=== PATIENT | male | born 2005 | race Caucasian/White ===

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

== ENCOUNTER 2024-06-18 00:12 | Emergency (ER) | payer OTHER, SELFPAY ==
[2024-06-18] VITALS (19 sets, daily range): BP systolic 123–147; BP diastolic 64–110; PULSE 50–82; RESP 12–22; TEMP 36.6; O2SAT 96–100
[2024-06-18 00:57] LABS: Basophils Absolute Auto 0.1 K/mm3 (0.0-0.1); Basophils Percent Auto 0.4 % (0.2-1.2); Eosinophils Absolute Auto 0.1 K/mm3 (0-0.3); Eosinophils Percent Auto 0.8 % (0-4.4); Hematocrit 49.7 % (42.0-52.0); Hemoglobin 18.4 g/dL (14.0-18.0); Immature Granulocyte Absolute 0.09 K/mm3 (0.00-0.031); Immature Granulocyte Percent A 0.6 % (0-0.5); Lymphocytes Absolute Auto 1.49 K/mm3 (0.9-3.2); Lymphocytes Percent Auto 9.7 % (18.3-44.2); Mean Corpuscular Hemoglobin 32.2 pg (26-34); Mean Platelet Volume 10.1 fl (7.4-10.4); Monocytes Absolute Auto 0.8 K/mm3 (0.1-0.6); Monocytes Percent Auto 4.9 % (2.6-8.5); Neutrophils Absolute Auto 12.8 K/mm3 (1.3-6.7); Neutrophils Percent Auto 83.6 % (45.5-73.1); Platelet Count Result 339 k/mm3 (150-375); Red Blood Count 5.71 M/mm3 (4.6-6.20); Red Cell Distribution Width 12.5 % (11.5-14.5); White Blood Count 15.3 K/mm3 (4.5-10.0)
[2024-06-18] MEDS: SODIUM CHLORIDE 0.9% IV 1,000 ML 999 ML IV CONT (01:11)
[2024-06-18 01:19] LABS: Alanine Aminotransferase 28 U/L (6-50); Albumin Level 5.6 g/dL (3.5-5.1); Alkaline Phosphatase 93 U/L (38-126); Anion Gap 20 mmol/L (4-12); Aspartate Amino Transferase 35 U/L (17-59); Bilirubin,Total 1.2 mg/dL (0.2-1.3); Blood Urea Nitrogen 13 mg/dL (9-20); Calcium 10.5 mg/dL (8.4-10.2); Carbon Dioxide 18 mmol/L (22-30); Chloride 102 mmol/L (98-107); Estimated CRCL calculation 131 ml/min; Estimated Glomerular Filt Rate > 60; Glucose 122 mg/dL (65-110); Potassium 3.8 mmol/L (3.4-5.0); Sodium 140 mmol/L (137-145)
--- NOTE | 2024-06-18 01:26 | ED.NAVMDI ---
HPI - Nausea/Vomiting/Diarrhea General Chief complaint: Nausea/Vomiting/Diarrhea <Mel Delvalle PA-C - Last Filed: 06/18/24 02:06> Stated complaint: syncopal, vomiting <Mel Delvalle PA-C - Last Filed: 06/18/24 02:06> Time Seen by Provider: 06/18/24 00:46 <Mel Delvalle PA-C - Last Filed: 06/18/24 02:06> History of Present Illness HPI Narrative: 19-year-old male presents to the emergency department for nausea, vomiting, lightheadedness. Patient's mother provides history. States patient has a history of POTS and MCAS and follows with Neurology in [facility]. States he is having a flare up of my Mann . He is reporting nausea vomiting, lightheadedness, diffuse abdominal cramping. Denies fever, cough or congestion, chest pain or shortness of breath, dysuria or hematuria. <Mel Delvalle PA-C - Last Filed: 06/18/24 02:06> Related Data Home medications: Home Medications Medication Instructions Recorded Confirmed famotidine 40 mg tablet (Pepcid) 40 mg PO DAILY 03/03/24 03/03/24 propranolol 20 mg tablet 20 mg PO BID 03/03/24 03/03/24 <Mel Delvalle PA-C - Last Filed: 06/18/24 02:06> Allergies/Adverse reactions: Allergies Allergy/AdvReac Type Severity Reaction Status Date / Time doxycycline Allergy Nausea and Verified 06/18/24 01:14 Vomiting <Mel Delvalle PA-C - Last Filed: 06/18/24 02:06> Review of Systems Review of Systems: All systems reviewed & are unremarkable except as noted in HPI and below <Mel Delvalle PA-C - Last Filed: 06/18/24 02:06> [facility] Past Medical History Medical History: Medical History Blackout spell Dizziness Fainting Fatigue Seizures Stomach pain <Mel Delvalle PA-C - Last Filed: 06/18/24 02:06> Family History Family History: Family History Father , 34 Accidental overdose Mother Hypertension Depression Anxiety Sibling Depression Anxiety <Mel Delvalle PA-C - Last Filed: 06/18/24 02:06> Social History Social History: Social History Smoking status: Never smoker Second hand tobacco smoke exposure: No Alcohol intake: never Substance use: never Substance use type: does not use Do You Feel Safe in your Home?: Yes Lack of Transportation: No Lack of Food: Never True Current Housing: I Have Housing Concerned About Future Housing: No Difficulty Paying Gas/Electric Bills: No Difficulty Paying for Meds: No Currently Unemployed: No Education: High School Diploma/GED Difficulty w/ Childcare or Family Care: No Living arrangements: with family Occupation/Education: unemployed Gender identity (if verbalized by the patient): Male <Mel Delvalle PA-C - Last Filed: 06/18/24 02:06> Exam Narrative: GENERAL: well-nourished, and in no acute distress. Diaphoretic HEAD: Normocephalic, atraumatic. EYES: PERRLA and EOMI. ENT: Nares clear, no rhinorrhea or epistaxis. Mucous membranes moist. NECK: Supple. CHEST: Clear to auscultation. No respiratory distress. HEART: Regular rate and rhythm. No murmur heard. Normal peripheral pulses. ABDOMEN: Soft, nontender, nondistended, normal active bowel sounds. EXTREMITIES: Normal range of motion. No edema. SKIN: Warm, dry, no rash. NEURO: No focal deficits. Alert and oriented x3 <Mel Delvalle PA-C - Last Filed: 06/18/24 02:06> Course [employer]/PA Physician Supervision I agree with midlevel documentation; I performed the medical decision making component of this evaluation. <Nikki Vaughn MD - Last Filed: 06/18/24 05:02> Reevaluation(s) Reevaluation #1: Patient feeling better, no further episodes of emesis here. He is still very slightly nauseous so I did give additional medications and fluids. He is now r
--- NOTE | 2024-06-18 01:26 | ECG_ITS ---
Test Date: 2024-06-18 01:53:00 Measurements Intervals [place] Rate: 54 P: 0 DC: 0 QRS: 75 QRSD: 106 T: 32 QT: 415 QTc: 395 Interpretive Statements ATRIAL FIBRILLATION WITH SLOW VENTRICULAR RESPONSE ABNORMAL RHYTHM ECG No previous ECG available for comparison Electronically Signed On 06-18-2024 13:45:18 CDT by Sunil Tee M.D.
[2024-06-18 01:50] LABS: Lipase 80 U/L (23-300)
[2024-06-18 02:15] LABS: Influenza A QL RT-PCR Negative (Negative); Influenza B QL RT-PCR Negative (Negative); RSV RNA, RT-PCR Negative (Negative); SARS-CoV-2 RNA PCR Negative (Negative)
[2024-06-18] MEDS: ONDANSETRON INJ 4 MG/2 ML VIAL IV PUSH (02:27)
[2024-06-18] MEDS: LACTATED RINGERS 1,000 ML 999 ML IV CONT (04:20)
[2024-06-18] MEDS: diphenhydrAMINE HCl INJ 50 MG/ML VIAL 25 MG IV PUSH (04:20)
[2024-06-18] MEDS: METOCLOPRAMIDE HCL INJ 10 MG/2 ML VIAL IV PUSH (04:21)
--- NOTE | 2024-06-18 04:25 | PC.NURSE ---
Patient given water for PO challenge.
== END 2024-06-18 05:47 | disposition home or self-care (01) ==
PROVIDERS: Physician Assistant; Emergency Provider Emergency Medicine; PCP Emergency Medicine
DX: G90.A Postural orthostatic tachycardia syndrome [POTS] (principal); R11.2 Nausea with vomiting, unspecified; Z20.822 Contact with and (suspected) exposure to COVID-19; D89.40 Mast cell activation, unspecified
CPT/HCPCS: 36415; 80053; 83690; 85025; 87637; 93005; 96361; 96374; 96375; 99284; J1200; J2405; J2765; J7030; J7120

== ENCOUNTER 2024-06-27 13:46 | Emergency (ER) | payer OTHER, SELFPAY ==
--- NOTE | ~2024-06-27 | XR_ITS ---
XR hand LT min 3V 06/27/2024 14:05 INDICATION: Left hand pain PROCEDURE: 3 views left hand COMPARISON: No prior studies for comparison. FINDINGS: Fracture, dislocation or subluxation is not identified. The soft tissues appear within norm al limits. No foreign bodies are identified. IMPRESSION: 1: NO ACUTE BONE OR JOINT ABNORMALITY IDENTIFIED. Reviewed, dictated and finalized at location B.
[2024-06-27 13:50] VITALS: BP 116/67; PULSE 85; RESP 20; TEMP 36.6; O2SAT 100
--- NOTE | 2024-06-27 13:58 | ED.UPPEXIN ---
HPI - Extremity Injury (Upper) General Chief Complaint: Extremity Injury, Upper Stated Complaint: left hand injury History of Present Illness HPI narrative: Patient presents with a hand injury that occurred last night when he was carrying a laundry basket up stairs he states he got the hand caught between a laundry basket and the door and now has bruising swelling and tenderness to his left hand. No deformity noted. Related Data Home Medications Medication Instructions Recorded Confirmed clindamycin phosphate 1 % topical 1 applic topical BID 06/27/24 06/27/24 gel duloxetine 60 mg capsule,delayed 60 mg PO QAM 06/27/24 06/27/24 release famotidine 20 mg tablet 20 mg PO DAILY 06/27/24 06/27/24 fexofenadine 180 mg tablet 180 mg PO BID 06/27/24 06/27/24 (Allergy Relief (fexofenadine)) propranolol 10 mg tablet 10 mg PO DAILY 06/27/24 06/27/24 triamcinolone acetonide 0.1 % 1 applic topical DAILY 06/27/24 06/27/24 topical ointment Allergies Allergy/AdvReac Type Severity Reaction Status Date / Time doxycycline AdvReac Intermediate Nausea and Verified 06/27/24 14:04 Vomiting Review of Systems Review of Systems: CONSTITUTIONAL: Denies fever, chills, or sweats. EYES: Denies visual changes, redness, or discharge. ENT: Denies rhinorrhea, congestion, sore throat, or otalgia. CARDIOVASCULAR: Denies chest pain, palpitations, or edema. RESPIRATORY: Denies cough or dyspnea. GASTROINTESTINAL: Denies abdominal pain, nausea, vomiting, or diarrhea. GENITOURINARY: Denies dysuria or hematuria. SKIN: Denies rash or itching. MUSCULOSKELETAL: Denies back pain, joint pain, or myalgia. NEUROLOGIC: Denies headache, numbness, or weakness. PSYCHIATRIC: Denies anxiety or depression. [facility] Past Medical History Medical History Blackout spell Dizziness Fainting Fatigue Seizures Stomach pain Family History Family History Father , 34 Accidental overdose Mother Hypertension Depression Anxiety Sibling Depression Anxiety Social History Social History (Reviewed 08/11/24 @ 01:27 by ETHEL Cornejo Smoking status: Never smoker Second hand tobacco smoke exposure: No Alcohol intake: never Substance use: never Substance use type: does not use Do You Feel Safe in your Home?: Yes Lack of Transportation: No Lack of Food: Never True Current Housing: I Have Housing Concerned About Future Housing: No Difficulty Paying Gas/Electric Bills: No Difficulty Paying for Meds: No Currently Unemployed: No Education: High School Diploma/GED Difficulty w/ Childcare or Family Care: No Living arrangements: with family Occupation/Education: unemployed Gender identity (if verbalized by the patient): Male Comments At time of signature, agree with nursing past medical, surgical, social and family history. There is no relevant family history pertinent to the presenting complaint Exam Narrative: GENERAL: Well-appearing, well-nourished, and in no acute distress. HEAD: Normocephalic, atraumatic. EYES: PERRLA and EOMI. ENT: Nares clear, no rhinorrhea or epistaxis. Mucous membranes moist. NECK: Supple. CHEST: Clear to auscultation. No respiratory distress. HEART: Regular rate and rhythm. No murmur heard. Normal peripheral pulses. ABDOMEN: Soft, nontender, nondistended, normal active bowel sounds. EXTREMITIES: Normal range of motion. No edema. HAND EXAM - Skin intact, no laceration, no swelling, no erythema, normal digit cascade with flexion of fingers, median nerve, ulnar nerve, radial nerve is intact. Normal sensation of each side of each finger, can perform `ok? sign, `cross over finger test of index and middle fingers? and `thumbs up? sign, normal thumb opposition, no scissoring. good capillary refill and radial pulse. normal flexion and extension of fingers and wrist. no
== END 2024-06-27 14:35 | disposition home or self-care (01) ==
PROVIDERS: Emergency Provider Nurse Practitioner Family; PCP Emergency Medicine
DX: S60.222A Contusion of left hand, initial encounter (principal); S60.512A Abrasion of left hand, initial encounter; X58.XXXA Exposure to other specified factors, initial encounter
CPT/HCPCS: 73130; 99213; G0463

== ENCOUNTER 2024-09-27 16:26 | Emergency (ER) | payer SELFPAY ==
--- NOTE | ~2024-09-27 | XR_ITS ---
EXAMINATION: XR hand LT min 3V DATE: 09/27/2024 20:18 INDICATION: Dog bite. TECHNIQUE: 3 views of left hand were obtained. COMPARISON: Left hand radiographs 06/27/2024 FINDINGS: Alignment is normal. No fracture. Joint spaces are normal. No radiopaque foreign body. IMPRESSION: 1. No fracture or radiopaque foreign body. Reviewed, dictated and finalized at location A. ND BLANCHER
[2024-09-27 16:31] VITALS: BP 138/78; PULSE 88; RESP 16; O2SAT 100
[2024-09-27 19:47] VITALS: BP 141/89; PULSE 92; RESP 20; TEMP 37.1; O2SAT 98
--- NOTE | 2024-09-27 19:51 | ED_ITS ---
HPI - Animal Bite General Chief Complaint: Animal Bite Stated Complaint: dog bite Time Seen by Provider: 09/27/24 19:50 Source: patient Mode of arrival: ambulatory Limitations: no limitations History of Present Illness HPI narrative: This is a 19-year-old male who presents to the ED for chief complaint of dog bite injury that occurred just prior to arrival. Patient reports that he has new puppy who was fighting with their older dog. Reports that he tried the break up the fight and suffered a laceration/puncture injury to the left hand. Tdap not UTD. Denies any further sites of pain or injury. Related Data Home Medications Medication Instructions Recorded Confirmed clindamycin phosphate 1 % topical 1 applic topical BID 06/27/24 06/27/24 gel duloxetine 60 mg capsule,delayed 60 mg PO QAM 06/27/24 06/27/24 release famotidine 20 mg tablet 20 mg PO DAILY 06/27/24 06/27/24 fexofenadine 180 mg tablet 180 mg PO BID 06/27/24 06/27/24 (Allergy Relief (fexofenadine)) propranolol 10 mg tablet 10 mg PO DAILY 06/27/24 06/27/24 triamcinolone acetonide 0.1 % 1 applic topical DAILY 06/27/24 06/27/24 topical ointment Allergies Allergy/AdvReac Type Severity Reaction Status Date / Time doxycycline AdvReac Intermediate Nausea and Verified 06/27/24 14:04 Vomiting Review of Systems Review of Systems: All systems as dictated in HPI PMFSH Past Medical History Medical History Blackout spell Dizziness Fainting Fatigue Seizures Stomach pain Family History Family History Father , 34 Accidental overdose Mother Hypertension Depression Anxiety Sibling Depression Anxiety Social History Social History Smoking status: Never smoker Second hand tobacco smoke exposure: No Alcohol intake: never Substance use: never Substance use type: does not use Do You Feel Safe in your Home?: Yes Lack of Transportation: No Lack of Food: Never True Current Housing: I Have Housing Concerned About Future Housing: No Difficulty Paying Gas/Electric Bills: No Difficulty Paying for Meds: No Currently Unemployed: No Education: High School Diploma/GED Difficulty w/ Childcare or Family Care: No Living arrangements: with family Occupation/Education: unemployed Gender identity (if verbalized by the patient): Male Exam Narrative: GENERAL: Well-appearing, well-nourished, and in no acute distress. MSK: Normal range of motion. No edema. SKIN: Small bite valarie puncture wound to the webspace in between 1st and 2nd digit of the left hand. Mild abrasion to the nail bed of the left thumb. No active bleeding. NEURO: Alert and oriented x4. No focal deficits. PSYCH: Normal mood and affect. Course Vital Signs Vital signs: Vital Signs Pulse Rate 88 09/27/24 16:31 Respiratory Rate 16 09/27/24 16:31 Blood Pressure 138/78 09/27/24 16:31 Pulse Oximetry 100 09/27/24 16:31 Oxygen Delivery Room Air 09/27/24 16:31 Temperature 98.8 F 09/27/24 19:47 Pulse Rate 92 09/27/24 19:47 Respiratory Rate 20 09/27/24 19:47 Blood Pressure 141/89 H 09/27/24 19:47 Pulse Oximetry 98 09/27/24 19:47 Oxygen Delivery Room Air 09/27/24 19:47 Procedures Laceration Laceration 1: Date: 09/27/24 Time: 20:25 Site: scalp and hand Side (If applicable): left Size (cm): 0.5 Description: linear Depth: simple, single layer Local Anesthetic: none Pre-repair: wound explored, irrigated extensively and deep structures intact ====== Skin Level ====== Skin layer closed with: steri strips Number of sutures: 2 ====== Subcutaneous Layer ====== ====== Muscle Layer ====== ====== Tendon Layer ====== MDM - Animal Bite MDM Narrative Medical decision making narrative: 19-year-old male who presents to the ED for chief complaint of dog bite injury that occurred just prior to arrival. Vitals are normal.. Exam shows a 0.5 cm puncture wound to the webspace in between left thumb and index finger. The wound was well cleansed and irrigated here. Elected for loose approximation with Steri-Strips rather than sutures today for concern of possible infection. X-ray of the hand is negative for acute findings. Tdap was updated Laceration instructions given. Rx for Augmentin Patient will be discharged in stable condition. Supportive measures discussed and return precautions given. Patient is understanding and agreeable with plan for discharge with PCP follow-up. Discharge Plan Discharge Clinical Impression: Bite by animal Patient Disposition: Home, Self-Care Condition: Stable Instructions: Antibiotic Form, Animal Bite (ED) Additional Instructions: Keep wound clean and dry. Do not soak, take baths, or swim until wound is compl etely healed. If any signs of infection such as redness, swelling, increasing pain, drainage of purulent discharge, streaks up your extremity develop, seek medical attention immediately. Prescriptions: New amoxicillin-pot clavulanate 875-125 mg tablet 1 tablet PO Q12H Qty: 14 0RF No Action famotidine 20 mg tablet 20 mg PO DAILY fexofenadine [Allergy Relief (fexofenadine)] 180 mg tablet 180 mg PO BID propranolol 10 mg tablet 10 mg PO DAILY triamcinolone acetonide 0.1 % ointment 1 applic TOPICAL DAILY duloxetine 60 mg capsule,delayed release(DR/EC) 60 mg PO QAM clindamycin phosphate 1 % gel 1 applic TOPICAL BID mupirocin [Centany] 2 % ointment 1 applic topical TID 7 Days Qty: 22 0RF Follow-up/Referrals: Huan Carvajal MD [Primary Care Provider] - Time of Disposition: 20:30
== END 2024-09-27 21:00 | disposition home or self-care (01) ==
LOC: ANHED 20:47
PROVIDERS: Emergency Provider Physician Assistant; PCP Emergency Medicine
DX: S61.452A Open bite of left hand, initial encounter (principal); W54.0XXA Bitten by dog, initial encounter; G40.909 Epilepsy, unspecified, not intractable, without status epilepticus
CPT/HCPCS: 73130; 99283